=== PATIENT | male | born 2000 | race Caucasian/White ===

== ENCOUNTER 2024-06-04 07:53 | Outpatient (CLI) | payer BC, SELFPAY ==
--- OUTSIDE RECORDS SUMMARY | 2024-06-04 07:59 | XMS_ITS | Clinical Summary ---
Author Organization [facility] Address [address] [place] [id number] Phone Care Team Providers Care Roller Bearing Inspector Name Role Phone Karina Hammonds MD Primary Care Provider [phone] Allergies No known active allergies Medications ondansetron (ZOFRAN-ODT) 4 MG TABLET DISPERSIBLEIndic ations:Nausea Take 1 Tablet by mouth every 8 hours as needed for Nausea - 1st line. 10 Tablet 08/01/2020 Active Active Problems No known active problems Social History Tobacco Use Types Packs/Day Years Used Date Smoking Tobacco: Never Smokeless Tobacco: Never Sex and Gender Information Value Date Recorded Sex Assigned at Not on file Legal Sex Male 12:11 AM CDT Gender Identity Not on file Sexual Orientation Not on file Last Filed Vital Signs Vital Sign Reading Time Taken Comments Blood Pressure 100/56 08/01/2020 2:05 PM CDT Pulse 102 08/01/2020 2:05 PM CDT Temperature 36 ??C (96.8 ??F) 08/01/2020 2:05 PM CDT Respiratory Rate 20 08/01/2020 2:05 PM CDT Oxygen Saturation 96% 08/01/2020 2:05 PM CDT Inhaled Oxygen Concentration - - Weight 93 kg (205 lb) 08/01/2020 2:05 PM CDT Height - - Body Mass Index - - Plan of Treatment Health Maintenance Due Date Last Done Comments Hepatitis C Virus (HCV) Screening 2002 Hepatitis B Immunization (4 of 4 - 4-dose series) 2002 2002, 2002, 2002 Meningococcal B Immunization (1 of 2 - Standard) 2018 Human Papillomavirus (HPV) Immunization (3 - Male 3-dose series) 11/28/2018 09/05/2018, 02/28/2018 Influenza Immunization (#1) 01/05/202402/03, 05/05/2019, 02/28/2018, Additional history exists SARS-COV-2 Immunization (3 - 2023- season) 2024 09/13/2020, 08/23/2020 Respiratory Syncytial Virus (RSV) Immunization (Adult) (1 - 1-dose 75+ series) 2077 Pneumococcal Immunization Combined Aged Out 11/30/2003, 2002, 2002, Additional history exists No longer eligible based on patient's age to complete this topic Measles Mumps Rubella (MMR) Immunization Discontinued 10/16/2006, 08/12/2003 Polio (IPV) Immunization Discontinued 007, 2002, 2002, Additional history exists Varicella Immunization Discontinued 10/16/2006, 2003 DTaP/Tdap/Td Immunization Discontinued 2013, 10/16/2006, 11/30/2003, Additional history exists Hepatitis A Immunization Discontinued 10/06/2013, 10/04 TdaP Immunization Completed 10/06/2013 Meningococcal Immunization (ACWY) Aged Out 12/21/2014 No longer eligible based on patient's age to complete this topic Rotavirus Immunization Aged Out No lo nger eligible based on patient's age to complete this topic Insurance [facility] Care Teams Roller Bearing Inspector Relationship Specialty Start Date End Date Karina Hammonds MD [facility] [address] [address] PCP - General Pediatrics 08/01/20
--- OUTSIDE RECORDS SUMMARY | 2024-06-04 07:59 | XMS_ITS | Clinical Summary ---
Author Organization [facility] Address [address] [place] [address]. [place] [address] [place] [address] Care Team Providers Care Pt Escort Name Role Phone None, Provider MD Primary Care Provider Unavaila ble Allergies No known active allergies Medications No known medications Social History Tobacco Use Types Packs/Day Years Used Date Smoking Tobacco: Never Smokeless Tobacco: Never Tobacco Cessation:Counseling Given: Not Answered Sex and Gender Information Value Date Recorded Sex Assigned at Not on file Legal Sex Male 2:16 PM CDT Gender Identity Not on file Sexual Orientation Not on file Last Filed Vital Signs Vital Sign Reading Time Taken Comments Blood Pressure 122/66 10/13/2023 4:00 PM CDT Pulse 99 10/13/2023 4:00 PM CDT Temperature 36.4 ??C (97.6 ??F) 10/13/2023 2:21 PM CD T Respiratory Rate 20 10/13/2023 4:00 PM CDT Oxygen Saturation 97% 10/13/2023 4:00 PM CDT Inhaled Oxygen Concentration - - Weight 90.7 kg (200 lb) 10/13/2023 2:21 PM CDT Height 175.3 cm (5' 9 ) 10/13/2023 2:21 PM CDT Body Mass Index 29.53 10/13/2023 2:21 PM CDT Plan of Treatment Health Maintenance Due Date Last Done Comments Hepatitis B Vaccines (4 of 4 - 4-dose series) 2002 2002, 2002, 2002 Annual Physical 2005 Meningococcal B Vaccine (1 of 2 - Standard) 2018 Hepatitis C 2020 DTaP, Tdap and Td Vaccines (7 - Td or Tdap) 10/07/2023 10/06/2013, 10/16/2006, 11/30/2003, Additional history exists COVID-19 Vaccine ( season) 2024 09/13/2020, 08/23/2020 Influenza Adult (#1) 2024 06/11/2023, 01/30/2021, 02/13/2020, Additional history exists Pneumococcal Vaccine: Pediatrics (0 to 5 Years) and At-Risk Patients (6 to 64 Years) Aged Out 11/30/2003, 2002, 2002, Additional history exists No longer eligible based on patient's age to complete this topic HPV Vaccines Completed 01/30/2021, 0 07/2018, 02/28/2018 Meningococcal Vaccine Completed 01/30/2021, 015 RSV Immunizations Under 20 Months Aged Out No longer eligible based on patient's age to complete this topic Insurance [facility] Care Teams Pt Escort Relationship Specialty Start Date End Date None, Provider, MD PCP - General UNKNOWN PHYSICIAN SPECIALTY 10/13/23
--- NOTE | 2024-06-17 18:54 | WPDHOMESLEEP ---
Sleep Study - Home Unattended Date of Study: 06/04/24 Ordering Provider: eJrzy Martin APRN Interpreting Provider: Paty Roberto MD Home Sleep Study Type: Watch ROGER Height: 1.75 m Weight: 90.718 kg Body Mass Index: 29.5 Neck Circumference (inches): 17.5 [place]: 7 Reason for Sleep Study Difficulty falling asleep, at times non refreshing sleep Sleep History Rolando Osborne is a 23-year-old man who reports difficulty falling asleep, has had this problem for several years. It takes at least an hour most nights for him to fall asleep. Once he falls asleep he is able to maintain sleep. He estimates getting between 6 and 7 hours of sleep at night. His bedtime and wake time varies due to what he may be doing in the evening, finding something interesting such as a video game may keep him up later. He has occasional nocturia. She he does not snore nor does he wake himself up at night snoring or gasping. He has some dreams usually later in the night. He does not have uncomfortable feelings in his legs before sleep and he does not report kicking much at night. Some mornings he awakens feeling refreshed and other days he awakens feeling tired. He does not take naps. He feels anxious at times, notices his mind racing. His office note indicates that over the last year, he has had episodes when his muscles gave out, causing him to fall to the ground while appearing unresponsive however his eyes were open but he could not move. On one occasion, he went to the emergency department when he appeared to be unresponsive. This event has occurred during the daytime, and he did not have strong emotion occurring at the same time. He does not have vivid dreams upon falling asleep or upon waking, does not have muscle weakness with strong emotion, does not have excessive daytime sleepiness on a regular basis. His insomnia severity score is 7, not significant. Normal bedtime is variable depending on what he is doing that is interesting prior to falling asleep. On work days, his usual bedtime is 9:00 p.m. taking an hour at least to fall asleep. He spends 8 hours in bed 7 of these hours sleeping. On his days off, bedtime is 10:00 p.m., taking an hour to fall asleep spending 9 hours in bed, 6 hours sleeping. He is often tired on waking, denies drowsy driving or sleepiness that impairs his daytime functioning. He is more alert in the evening compared to the morning. He often wakes in the night, sometimes has problems returning to sleep when this happens. Habits: Tobacco: never smoker Caffeine: 5-6 cans of Diet Coke per day Alcohol: None Recreational substances: None PMFSH Past Medical History Medical History Body mass index [BMI] 33.0-33.9, adult Encounter for immunization Sleep disorder, unspecified Family History Family History Grandparent Diabetes mellitus Social History Social History Smoking status: Never smoker Alcohol intake: never Substance use: never Medications Home Medications ?Medication ?Instructions ?Recorded ?Confirmed ?Type magnesium oxide 250 mg PO DAILY 02/20/24 02/24/24 History Sleep Procedure The sleep study was completed using Char [employer] a technically adequate device with seven channels: peripheral arterial tone, actigraphy, body position, snore, respiratory movement, pulse oximetry, sleep staging, and heart rate. Prior to using the device, the patient received verbal and written instructions for its application and was provided with the help desk phone number for additional telephonic instruction with 24-hour availability of qualified personnel to answer questions. Sleep Architecture The total recording time is 9 hours 59 minutes. The total sleep time is 9 hours 22 minutes minutes. Sleep latency is 9 minutes. REM latency is 24 minutes. The patient had 5 episodes of waking. Sleep architecture shows 21.5% deep sleep, 58% light sleep, and 20.4% stage REM. The patient spent 341.5 minutes, 60.7% of total sleep time in the supine position. Sleep efficiency is 94%, very high. Respiratory Analysis The overall AHI is 7.0 using a 3% criteria. The AHI using 4% criteria was 2.0. The central AHI is 1.0. The REM AHI was 14.1. The supine apnea-hypopnea index was 8.1. There was no evidence of Hai-Wilson respirations. Oximetry Data The oxygen desaturation index is 1.4. The mean saturation is 96%, the lowest saturation is 90%, and the patient spent no sleep time below 88%. Snoring Profile Snoring was present, average intensity 40 dB. The patient snored above 45 dB for 6.5 minutes, 1.2% of the sleep time. Cardiac Profile The average pulse is 68 beats per minute, the lowest pulse is 44 beats per minute, and the highest pulse is 112 beats per minute. The cardiac rhythm analysis and sleep did not detect atrial fibrillation. Assessment and Plan Assessment and Plan (1) Obstructive sleep apnea: Code(s): G47.33 - Obstructive sleep apnea (adult) (pediatric) Status: Acute Assessment and Plan: This home sleep test using WatchPat on June 04, 2024 shows mild obstructive sleep apnea, the apnea-hypopnea index using 3% criteria is 7.0, consistent with mild obstructive sleep apnea. He does not have a medical comorbidity such as hypertension or mood disorder that would allow him to proceed with treatment using PAP therapy. He has complaints include difficulty falling asleep, often requiring over an hour to do so. It is possible that he was sleep deprived the night before taking this test. This patient may have more than one problem. He has mild obstructive sleep apnea on this home sleep test. He describes several episodes of sleep paralysis on waking, suggesting narcolepsy. These events could also represent insufficient sleep. He may have sleep state misperception, thinking that he needs an hour to fall asleep, only requiring 9 minutes on this home sleep test. He had REM within 24 minutes, early. His sleep questionnaire indicates that he is getting between 6 and 7 hours of sleep most night. On this home sleep test, he had about 9 hours 22 minutes of sleep. This patient needs to allow himself enough time to get 7-9 hours of sleep routinely. This is the amount of sleep that normal adults need. Adequate amounts of sleep can reduce sleep deprivation, reducing symptoms seen in narcolepsy such as sleep paralysis which he reports. He also reported an incident that could have been cataplexy, muscle weakness and appearing unresponsiveness with open eyes, and no response to sternal rubs. This was followed by a trip to an ER. This was at an outside facility, not [place]. His symptoms are complex, and he requires a split night polysomnogram with MSLT decision in the morning. He should not nap on the day of the study, and he should not take a sleep aid on the night of the test. His symptoms are outside the scope of what a home sleep test can measure. He may have other sleep related events occurring such as leg movements, not measured by home sleep tests. He drinks several caffeinated beverages during the day. He should stop caffeine after lunch in order to avoid caffeine's impact on delaying sleep. Data The data obtained during this sleep study is adequate for interpretation. Certification This sleep study has been reviewed by a board certified sleep medicine physician.
[2024-06-17 21:01] VITALS: BMI 29.5
== END 2024-06-08 09:52 | disposition home or self-care (01) ==
PROVIDERS: PCP Internal Medicine; Visit Provider Nurse Practitioner Family
DX: G47.33 Obstructive sleep apnea (adult) (pediatric) (principal); G47.00 Insomnia, unspecified
CPT/HCPCS: 95800